=== PATIENT | male | born 1965 | race Caucasian/White ===

== ENCOUNTER 2017-05-16 13:05 | Emergency (ER) | payer OTHER ==
[~2017-05-16] VITALS: Ht 185.4 cm; Wt 95.2 kg
--- NOTE | ~2017-05-16 | CR88 ---
[facility] A Service of [facility] & [facility] RADIOLOGY TEXT RESULTS PATIENT: DEA GARRETT LOCATION: [facility] : 61 UNIT #: [id number] AGE: [address]: Domenic Craig MD SEX: M ORDER DR: [id number] [facility] [address] [place], [place] [address] [id number] MR#: [id number] Acc #: [id number] NAME: DEA GARRETT. : 1965 SEX: M STUDY DATE/TIME: 05/16/2017 14:09 UNIT: [facility] ROOM: STUDY DESCRIPTION: CR Elbow 1 View Rt Attending Physician: Domenic Craig M.D. Referring Physician: Kerri Fontenot M.D. Ordering Physician: Domenic Craig M.D. Primary Care Physician: Kerri Fontenot M.D. MEDICAL IMAGING REPORT This report is preliminary unless electronic signature is present EXAM Right elbow INDICATIONS Right elbow trauma after closing it in a door today. FINDINGS This is a single view study. Patient cannot bend his arm and therefore, only an AP view was obtained. On the AP view, there is no visible fracture or dislocation. Dictated by... Shahid Christiansen M.D. THIS IS AN ELECTRONICALLY VERIFIED REPORT Shahid Christiansen M.D. at 05/16/2017 9:55 PM FEL/pcl TD: 05/16/2017 21:52 JOB #: [id number] MEDICAL IMAGING REPORT Page 1 of 1 COPY
[~2017-05-16 13:05] MED LIST: ACTOS30 MG PO; AMITRIPTYLINE H75 MG PO; FLEXERIL PO; GLYNASE PO; LEVEMIR100 UNITS/ SUBQ; LISINOPRIL PO; LORTAB 7.5-5001 TAB PO; METFORMIN PO; PRINIVIL20 M1 PO
== END 2017-05-16 16:02 | disposition home or self-care (01) ==
LOC: CED 13:05
DX: S50.01XA Contusion of right elbow, initial encounter (principal); E11.9 Type 2 diabetes mellitus without complications; I10 Essential (primary) hypertension; W22.8XXA Striking against or struck by other objects, initial encounter
CPT/HCPCS: 29260; 73070; 96372; 99284; J1885